=== PATIENT | male | born 1990 | race Two or more races ===

== ENCOUNTER 2022-01-10 13:53 | Emergency (ER) | payer MEDICAID, SELFPAY ==
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
[2022-01-10 14:16] VITALS: BP 102/75; PULSE 84; RESP 18; TEMP 37.1; O2SAT 97; BMI 24.3
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
== END 2022-01-10 17:13 | disposition home or self-care (01) ==
PROVIDERS: Emergency Provider Emergency Medicine
DX: S02.2XXA Fracture of nasal bones, initial encounter for closed fracture (principal); S00.83XA Contusion of other part of head, initial encounter; Y04.2XXA Assault by strike against or bumped into by another person, initial encounter; Y93.9 Activity, unspecified; Y92.9 Unspecified place or not applicable; Y99.9 Unspecified external cause status
CPT/HCPCS: 70486; 99283; 99284

== ENCOUNTER 2022-02-18 16:13 | Outpatient (REF) | payer OTHER, MEDICAID, SELFPAY ==
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
== END 2022-02-18 16:14 | disposition home or self-care (01) ==
LOC: HO.HMGCX 16:13
PROVIDERS: Visit Provider Internal Medicine
DX: S63.501A Unspecified sprain of right wrist, initial encounter (principal)
CPT/HCPCS: 73110

== ENCOUNTER 2022-05-19 13:53 | Outpatient (REF) | payer MEDICAID, SELFPAY ==
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
== END 2022-05-19 13:54 | disposition home or self-care (01) ==
LOC: HO.CT 13:53
PROVIDERS: Visit Provider Internal Medicine Geriatric Medicine
DX: R56.9 Unspecified convulsions (principal)
CPT/HCPCS: 70450

== ENCOUNTER 2023-03-16 17:50 | Emergency (ER) | payer MEDICAID, SELFPAY ==
[2023-03-16 18:42] VITALS: BP 167/111; PULSE 82; RESP 18; TEMP 37; O2SAT 100; BMI 25.1
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
[2023-03-16 20:52] VITALS: BP 168/100; PULSE 69; RESP 17; TEMP 36.8; O2SAT 100
[2023-03-16 20:53] VITALS: BP 149/88
[2023-03-16] MEDS: Ibuprofen 800 MG TABLET PO (21:47)
== END 2023-03-16 23:14 | disposition home or self-care (01) ==
PROVIDERS: Emergency Provider Emergency Medicine
DX: G43.909 Migraine, unspecified, not intractable, without status migrainosus (principal); Z79.899 Other long term (current) drug therapy
CPT/HCPCS: 99283

== ENCOUNTER 2023-04-14 11:11 | Outpatient (REF) | payer MEDICAID, SELFPAY ==
--- NOTE | ~2023-04-14 | MR_ITS ---
EXAMINATION: MR BRAIN WITHOUT CONTRAST CLINICAL INFORMATION: Seizure disorder. COMPARISON: Head CT dated 05/19/2022. TECHNIQUE: Multiplanar, multisequence imaging of the brain was acquired on a 3 Jessica magnet without contrast. Patient refused intravenous contrast for the study. FINDINGS: No diffusion abnormalities are identified to suggest an acute infarct. The ventricles are normal in size. No mass effect or midline shift is seen. Nonspecific mild scattered white matter signal changes are visible. No extra-axial fluid collections are seen. The brainstem and cerebellum are normal. No focal cortical dysplasia or migrational abnormality is seen. The hippocampi are normal in appearance. The gradient refocused acquisition demonstrates no pathologic magnetic susceptibility artifact to indicate underlying acute or chronic blood products. The craniovertebral junction, marrow signal, and midline structures are normal. The orbits and pituitary axis appear normal. The major intracranial flow voids at the level of the habematolel of [place] are preserved. The dural venous sinus flow voids are maintained. The mastoid air cells are well aerated. Mild ethmoid sinus mucosal thickening noted. MR/MR head/brain wo/w con IMPRESSION: Nonspecific mild scattered white matter signal changes. No acute process. No hippocampal pathology or epileptogenic focus identified.
== END 2023-04-14 11:12 | disposition home or self-care (01) ==
LOC: HO.MRI 11:11
PROVIDERS: Visit Provider Psychiatry & Neurology Neurology
DX: G40.909 Epilepsy, unspecified, not intractable, without status epilepticus (principal)
CPT/HCPCS: 70553

== ENCOUNTER 2023-11-09 11:19 | Outpatient (REF) | payer MEDICAID, SELFPAY ==
[2023-11-09 13:12] LABS: Erythrocyte Sedimentation Rate 2 MM/HR (0-15)
[2023-11-09 13:24] LABS: Syphilis Screen Nonreactive (Nonreactive)
[2023-11-10 08:33] LABS: Lyme Abs Screen <0.90 index
[2023-11-13 12:59] LABS: Anti Nuclear Antibody Screen POSITIVE (NEGATIVE)
== END 2023-11-09 11:20 | disposition home or self-care (01) ==
LOC: HO.LAB 11:19
PROVIDERS: Psychiatry & Neurology Neurology; PCP Internal Medicine; Visit Provider Internal Medicine
DX: G40.909 Epilepsy, unspecified, not intractable, without status epilepticus (principal)
CPT/HCPCS: 36415; 85652; 86038; 86039; 86617; 86618; 86780

== ENCOUNTER 2025-06-13 11:57 | Outpatient (REF) | payer MEDICAID, SELFPAY ==
[2025-06-13 13:35] LABS: MANUAL DIFF FLAG NO
[2025-06-13 13:56] LABS: Hematocrit 43.2 % (42.0-52.0); Hemoglobin 13.8 g/dl (14.0-18.0); Imm Gran Abs Auto 0.03 X10*3/uL (0.00-0.03); Imm Gran Pct Auto 0.8 % (0.0-0.4); Lymphocytes Absolute Auto 0.6 X10*3/uL (1.2-4.9); Mean Corpuscular HGB Conc 31.9 g/dl (31.0-36.0); Mean Corpuscular Hemoglobin 27.1 pg (27.0-33.0); Mean Corpuscular Volume 84.9 fL (80.0-98.0); NRBC Abs Auto 0.000 X10*3/uL (0.0-0.012); NRBC Pct Auto 0.0 /100WBC (0.0-0.2); Platelet Count 236 X10*3/uL (160-400); Red Blood Count 5.09 X10*6/uL (4.60-5.80); White Blood Count 3.6 X10*3/uL (4.8-10.8)
[2025-06-13 14:33] LABS: Alanine Aminotransferase 26 U/L (0-40); Albumin Level 4.7 g/dL (3.5-5.0); Alkaline Phosphatase 79 U/L (39-117); Anion Gap 9 (12-20); Aspartate Amino Transferase 31 U/L (5-37); Blood Urea Nitrogen 9 mg/dL (9-16); Calcium 9.6 mg/dL (8.4-10.2); Carbon Dioxide 31 mmol/L (22-29); Chloride 106 mmol/L (96-108); Cholesterol 185 mg/dL (<200); Estimated Glomerular Filt Rate > 60; HDL Cholesterol 62 mg/dL (>40); Potassium 3.6 mmol/L (3.3-5.1); Sodium 142 mmol/L (135-145); Total Protein 8.1 g/dL (6.5-8.0); Triglycerides 111 mg/dL (<150)
[2025-06-13 15:22] LABS: Reflex LDLD? No
[2025-06-14 05:17] LABS: HBS Num1 1.42 mIU/mL (0-7.99); Hepatitis A Antibody IgM 0.16 Index (0-0.79); ~Hepatitis A Antibody IgM Nonreactive (Nonreactive)
[2025-06-14 05:18] LABS: HBc Num1 0.07 S/CO (0.00-0.79); HBsAGNum1 0.37 S/CO (0.00-0.99); Hepatitis B Surface Antigen Negative (Negative); ~HepC Num1 0.11 S/CO (0.00-0.79); ~Hepatitis B Surface Antibody NONREACTIVE (Nonreactive); ~Hepatitis C Antibody Nonreactive (Nonreactive)
[2025-06-14 05:29] LABS: HIV Num 1 0.06 S/CO (0.00-0.99); ~HepC Num1 0.12 S/CO (0.00-0.79); ~Hepatitis C Antibody Nonreactive (Nonreactive)
[2025-06-14 06:09] LABS: Syphilis Screen Nonreactive (Nonreactive)
[2025-06-16 08:04] LABS: ~Hepatitis A Antibody IgG 8.40 S/CO (0.00-0.99)
[2025-06-16 11:23] LABS: TS Negative Control Passed; TS Panel A 1; TS Panel B 0; TS Positive Control Passed; TSpotTB Negative (Negative)
== END 2025-06-13 11:58 | disposition home or self-care (01) ==
LOC: HO.HHCL 11:57
PROVIDERS: Family Medicine; PCP Internal Medicine; Visit Provider Internal Medicine
DX: Z01.84 Encounter for antibody response examination (principal); Z11.3 Encounter for screening for infections with a predominantly sexual mode of transmission; Z11.4 Encounter for screening for human immunodeficiency virus [HIV]; Z11.1 Encounter for screening for respiratory tuberculosis; Z11.59 Encounter for screening for other viral diseases; G40.909 Epilepsy, unspecified, not intractable, without status epilepticus; F11.20 Opioid dependence, uncomplicated; F41.1 Generalized anxiety disorder; F41.0 Panic disorder [episodic paroxysmal anxiety]; I10 Essential (primary) hypertension
CPT/HCPCS: 36415; 80053; 80061; 82248; 84443; 85025; 86481; 86704; 86706; 86708; 86709; 86780; 86803; 87340; 87389